=== PATIENT | female | born 1975 | race Caucasian/White ===

== ENCOUNTER 2016-12-24 15:11 | Emergency (ER) | payer OTHER ==
[~2016-12-24] VITALS: Ht 160 cm; Wt 54.0 kg
[~2016-12-24 15:11] MED LIST: AMOXICILLIN500 MG PO; ANAPROX DS550 MG PO; AUGMENTIN 875 M1 TAB PO; BACTRIM DS 8001 TA1 PO; CIPROFLOXACIN500 MG PO; CLARITIN10 MG PO; DAYPRO600 M1 PO; HYDROCODONE BIT1 T11 PO; MOTRIN800 MG PO; Motrin,Rufen800 MG PO; PROZAC10 MG PO; TRAMADOL HCL50 MG PO; ULTRAM50 MG PO; XANAX0.25 MG PO; ZITHROMAX Z PA250 MG PO; ZOFRAN ODT4 MG SL; ZOFRAN4 MG PO
[2016-12-24 15:20] VITALS: BP 119/74
[2016-12-24] MEDS ORDERED: CORTISPORIN SUS10 ML OT (15:31)
== END 2016-12-24 15:35 | disposition home or self-care (01) ==
LOC: ED 15:11
DX: H60.502 Unspecified acute noninfective otitis externa, left ear (principal); F17.200 Nicotine dependence, unspecified, uncomplicated; G47.00 Insomnia, unspecified; G43.909 Migraine, unspecified, not intractable, without status migrainosus; Z98.890 Other specified postprocedural states

== ENCOUNTER 2017-04-13 18:27 | Emergency (ER) | payer OTHER ==
[~2017-04-13] VITALS: Wt 52.2 kg
[~2017-04-13 18:27] MED LIST changes: +CORTISPORIN SUS10 ML OT
[2017-04-13 18:37] VITALS: BP 127/75
[2017-04-13] MEDS ORDERED: AMOXICILLIN500 M2 PO (18:49)
[2017-04-13] MEDS ORDERED: NAPROSYN500 MG PO (18:49)
== END 2017-04-13 18:58 | disposition home or self-care (01) ==
LOC: ED 18:27
DX: K08.89 Other specified disorders of teeth and supporting structures (principal); F17.200 Nicotine dependence, unspecified, uncomplicated; Z88.6 Allergy status to analgesic agent

== ENCOUNTER 2017-08-01 15:27 | Emergency (ER) | payer OTHER ==
[~2017-08-01] VITALS: Ht 162.5 cm; Wt 54.4 kg
[~2017-08-01 15:27] MED LIST changes: +AMOXICILLIN500 M2 PO; +NAPROSYN500 MG PO
[2017-08-01 15:34] VITALS: BP 139/76
[2017-08-01] MEDS ORDERED: FLONASE ALLERG9.9 ML NAS (16:21)
[2017-08-01] MEDS ORDERED: AMOXICILLIN500 M2 PO (16:21)
== END 2017-08-01 16:29 | disposition home or self-care (01) ==
LOC: ED 15:27
DX: J01.90 Acute sinusitis, unspecified (principal); R05 Cough; J02.9 Acute pharyngitis, unspecified; F17.200 Nicotine dependence, unspecified, uncomplicated; Z88.6 Allergy status to analgesic agent

== ENCOUNTER 2017-08-10 12:18 | Emergency (ER) | payer OTHER ==
[~2017-08-10] VITALS: Ht 162.5 cm; Wt 56.7 kg
[~2017-08-10 12:18] MED LIST changes: +FLONASE ALLERG9.9 ML NAS
[2017-08-10 12:37] VITALS: BP 105/52
== END 2017-08-10 14:00 | disposition home or self-care (01) ==
LOC: ED 12:18
DX: G43.909 Migraine, unspecified, not intractable, without status migrainosus (principal); G47.00 Insomnia, unspecified; F17.200 Nicotine dependence, unspecified, uncomplicated; Z88.5 Allergy status to narcotic agent; Z79.899 Other long term (current) drug therapy

== ENCOUNTER 2017-10-24 15:56 | Emergency (ER) | payer SELFPAY ==
[~2017-10-24] VITALS: Ht 162.5 cm; Wt 54.4 kg
[2017-10-24 16:03] VITALS: BP 116/64
== END 2017-10-24 17:07 | disposition home or self-care (01) ==
LOC: ED 15:56
DX: H61.23 Impacted cerumen, bilateral (principal); Z98.890 Other specified postprocedural states; Z79.899 Other long term (current) drug therapy; Z88.6 Allergy status to analgesic agent

== ENCOUNTER 2018-02-27 10:05 | Emergency (ER) | payer OTHER ==
[~2018-02-27] VITALS: Ht 162.5 cm; Wt 54.4 kg
[2018-02-27 10:09] VITALS: BP 110/66
[2018-02-27] MEDS ORDERED: IMITREX100 MG PO (10:27)
== END 2018-02-27 10:39 | disposition home or self-care (01) ==
LOC: ED 10:05
DX: G43.909 Migraine, unspecified, not intractable, without status migrainosus (principal); F17.200 Nicotine dependence, unspecified, uncomplicated; Z98.890 Other specified postprocedural states; Z88.6 Allergy status to analgesic agent

== ENCOUNTER → 2018-06-19 | Outpatient (CLI) | payer OTHER ==
[~2018-06-19] MED LIST changes: +IMITREX100 MG PO
== END | disposition home or self-care (01) ==
LOC: MAMMO 09:30
DX: Z12.31 Encounter for screening mammogram for malignant neoplasm of breast (principal)

== ENCOUNTER → 2018-07-09 | Outpatient (CLI) | payer OTHER | END | disposition home or self-care (01) | LOC: MAMMO 07-04 09:30 → US 07-04 10:00 → MAMMO 04:50 | DX: N64.89 Other specified disorders of breast (principal); N63.0 Unspecified lump in unspecified breast ==

== ENCOUNTER 2019-05-02 17:06 | Emergency (ER) | payer OTHER ==
[~2019-05-02] VITALS: Ht 162.5 cm; Wt 51.7 kg
[2019-05-02 17:08] VITALS: BP 138/71
== END 2019-05-02 18:54 | disposition home or self-care (01) ==
LOC: ED 17:06
DX: G43.909 Migraine, unspecified, not intractable, without status migrainosus (principal); F17.200 Nicotine dependence, unspecified, uncomplicated; Z88.8 Allergy status to other drugs, medicaments and biological substances

== ENCOUNTER 2019-08-16 16:30 | Emergency (ER) | payer OTHER ==
[~2019-08-16] VITALS: Ht 162.5 cm; Wt 53.1 kg
[2019-08-16 16:31] VITALS: BP 120/88
[2019-08-16] MEDS ORDERED: SEPTDS PO (19:49)
== END 2019-08-16 20:22 | disposition home or self-care (01) ==
LOC: ED 16:30
DX: J32.0 Chronic maxillary sinusitis (principal); G43.909 Migraine, unspecified, not intractable, without status migrainosus; F17.200 Nicotine dependence, unspecified, uncomplicated; Z88.6 Allergy status to analgesic agent

== ENCOUNTER 2019-10-18 16:14 | Emergency (ER) | payer OTHER ==
[~2019-10-18] VITALS: Ht 162.5 cm; Wt 49.9 kg
[~2019-10-18 16:14] MED LIST changes: +SEPTDS PO
[2019-10-18 16:17] VITALS: BP 135/78
== END 2019-10-18 17:20 | disposition left against medical advice (07) ==
LOC: ED 16:14
DX: N93.9 Abnormal uterine and vaginal bleeding, unspecified (principal); G43.909 Migraine, unspecified, not intractable, without status migrainosus; F41.9 Anxiety disorder, unspecified; R56.9 Unspecified convulsions; Z53.21 Procedure and treatment not carried out due to patient leaving prior to being seen by health care provider

== ENCOUNTER → 2019-10-29 | Outpatient (CLI) | payer OTHER | END | disposition home or self-care (01) | LOC: RAD 14:05 | DX: Z01.818 Encounter for other preprocedural examination (principal); N70.11 Chronic salpingitis; N92.1 Excessive and frequent menstruation with irregular cycle; Z77.22 Contact with and (suspected) exposure to environmental tobacco smoke (acute) (chronic) ==

== ENCOUNTER 2020-01-22 12:40 | Emergency (ER) | payer OTHER ==
[~2020-01-22] VITALS: Ht 162.5 cm; Wt 47.2 kg
[~2020-01-22 12:40] MED LIST changes: +CEFUROXIME AXE500 MG PO
[2020-01-22 12:47] VITALS: BP 141/67
[2020-01-22 13:31] LABS: HEMATOCRIT 36.5 % (37.0-47.0); MEAN CELL VOLUME 96.6 fl (81.0-99.0); MEAN CORPUSCULAR HGB 32.3 pg (27.0-31.0); MEAN CORPUSCULAR HGB CONC 33.4 g/dl (33.0-37.0); MEAN PLATELET VOLUME 11.5 fl (9.6-12.3); PLATELET COUNT AUTOMATED 332 10*3/uL (130-400); RED BLOOD COUNT 3.78 10*6/uL (4.10-5.10); WHITE BLOOD COUNT 6.6 10*3/uL (4.8-10.8)
[2020-01-22 13:43] LABS: ATYPICAL LYMPHS 1 % (0-0); PLATELET SUFFICIENCY NORMAL (NORMAL); TOTAL CELLS COUNTED 100 #CELLS
[2020-01-22 14:25] LABS: ACT PARTIAL THROMBO TIME 29.6 SECONDS (20.0-32.1)
[2020-01-22 14:37] LABS: ALBUMIN 3.6 gm/dl (3.1-4.5); ALKALINE PHOSPHATASE 49 U/L (45-117); BUN 8 mg/dl (7-24); CHLORIDE 107 mmol/L (98-107); CREATININE 0.71 mg/dL (0.55-1.02); LIPASE 122 U/L (73-393); POTASSIUM 3.9 mmol/L (3.5-5.1); SGOT/AST 23 IU/L (3-35); SGPT/ALT 23 U/L (12-78); SODIUM 136 mmol/L (136-145); TOTAL PROTEIN 6.6 gm/dL (6.4-8.2)
[2020-01-22 15:17] LABS: BILIRUBIN NEGATIVE (NEGATIVE); BLOOD TRACE-INTACT (NEGATIVE); CLARITY CLEAR (CLEAR); COLOR YELLOW (YELLOW); GLUCOSE NEGATIVE (NEGATIVE); KETONE NEGATIVE (NEGATIVE); LEUKO ESTERASE NEGATIVE (NEGATIVE); NITRITE POSITIVE (NEGATIVE); SPECIFIC GRAVITY 1.005 (1.005-1.030); UROBILINOGEN 0.2 E.U./dl (0.2-1.0)
[2020-01-22 15:18] LABS: BACTERIA 3+; EPITHELIAL CELLS 16-20; WBC 0-2 wbc/hpf (0-5)
[2020-01-22] MEDS ORDERED: ALBENDAZOLE200 MG PO (17:00)
[2020-01-22] MEDS ORDERED: CEPHALEXIN500 M1 PO (17:00)
== END 2020-01-22 17:10 | disposition home or self-care (01) ==
LOC: ED 12:40
PROVIDERS: Nurse Practitioner Family
DX: N39.0 Urinary tract infection, site not specified (principal); N93.9 Abnormal uterine and vaginal bleeding, unspecified; B80 Enterobiasis; G43.909 Migraine, unspecified, not intractable, without status migrainosus; Z88.6 Allergy status to analgesic agent

== ENCOUNTER 2020-03-12 20:06 | Emergency (ER) | payer OTHER ==
[~2020-03-12] VITALS: Ht 162.5 cm; Wt 45.4 kg
[~2020-03-12 20:06] MED LIST changes: +ALBENDAZOLE200 MG PO; +CEPHALEXIN500 M1 PO
[2020-03-12 20:11] VITALS: BP 137/83
[2020-03-12] MEDS ORDERED: VISTARIL50 MG PO (20:46)
== END 2020-03-12 20:54 | disposition home or self-care (01) ==
LOC: ED 20:06
DX: L25.9 Unspecified contact dermatitis, unspecified cause (principal); Z88.8 Allergy status to other drugs, medicaments and biological substances; Z79.899 Other long term (current) drug therapy

== ENCOUNTER 2020-09-07 11:02 | Emergency (ER) | payer OTHER ==
[~2020-09-07] VITALS: Wt 47.6 kg
[~2020-09-07 11:02] MED LIST changes: +VISTARIL50 MG PO
[2020-09-07 11:15] VITALS: BP 125/82
== END 2020-09-07 16:05 | disposition left against medical advice (07) ==
LOC: ED 11:02
DX: R51.9 Headache, unspecified (principal); Z53.21 Procedure and treatment not carried out due to patient leaving prior to being seen by health care provider

== ENCOUNTER 2022-02-17 19:10 | Emergency (ER) | payer BC ==
[~2022-02-17] VITALS: Ht 162.5 cm; Wt 49.9 kg
[2022-02-17 19:16] VITALS: BP 143/64
[2022-02-17] MEDS ORDERED: PENICILLIN VK500 MG PO (20:21)
== END 2022-02-17 20:42 | disposition home or self-care (01) ==
LOC: ED 19:10
DX: K02.9 Dental caries, unspecified (principal); H92.01 Otalgia, right ear; Z88.6 Allergy status to analgesic agent; Z98.890 Other specified postprocedural states

== ENCOUNTER 2022-05-01 08:43 | Emergency (ER) | payer BC ==
[~2022-05-01] VITALS: Ht 167.6 cm; Wt 54.4 kg
[~2022-05-01 08:43] MED LIST changes: +PENICILLIN VK500 MG PO
[2022-05-01 08:52] VITALS: BP 127/63
[2022-05-01] MEDS ORDERED: ONDANSETRON4 MG SL (09:15)
== END 2022-05-01 09:31 | disposition home or self-care (01) ==
LOC: ED 08:43
DX: U07.1 COVID-19 (principal); R11.0 Nausea; R51.9 Headache, unspecified; M79.10 Myalgia, unspecified site; Z88.8 Allergy status to other drugs, medicaments and biological substances; Z98.890 Other specified postprocedural states

== ENCOUNTER 2022-12-14 23:01 | Emergency (ER) | payer OTHER ==
[~2022-12-14] VITALS: Ht 162.5 cm; Wt 54.4 kg
[~2022-12-14 23:01] MED LIST changes: +ONDANSETRON4 MG SL
[2022-12-14 23:09] VITALS: BP 140/91
[2022-12-15 01:21] LABS: BASO # 0.1 10*3/uL (0.0-0.1); BASO % 0.6 % (0.0-1.0); EOS # 0.2 10*3/uL (0.0-0.4); HEMATOCRIT 32.7 % (37.0-47.0); LYMPH # 1.8 10*3/uL (1.3-4.4); LYMPH % 21.3 % (27.0-41.0); MEAN CELL VOLUME 94.8 fl (81.0-99.0); MEAN CORPUSCULAR HGB 31.6 pg (27.0-31.0); MEAN CORPUSCULAR HGB CONC 33.3 g/dl (33.0-37.0); MEAN PLATELET VOLUME 9.5 fl (9.6-12.3); MONO # 0.4 10*3/uL (0.1-1.0); MONO % 5.1 % (3.0-9.0); NEUT # 6.1 10*3/uL (2.3-7.9); NEUT % 70.8 % (47.0-73.0); PLATELET COUNT AUTOMATED 361 10*3/uL (130-400); RED BLOOD COUNT 3.45 10*6/uL (4.10-5.10); RED CELL DISTRI WIDTH 13.8 % (0-14.5); WHITE BLOOD COUNT 8.6 10*3/uL (4.8-10.8)
[2022-12-15 01:37] LABS: ALKALINE PHOSPHATASE 63 U/L (46-116); BUN 9 mg/dl (9-23); CHLORIDE 109 mmol/L (98-107); POTASSIUM 3.8 mmol/L (3.4-5.1); SGPT/ALT 8 U/L (10-49); TOTAL PROTEIN 6.5 gm/dL (6.0-8.0)
[2022-12-15] MEDS ORDERED: AMOX-CLAV 875-1 EACH PO (04:17)
[2022-12-15] MEDS ORDERED: FLONASE ALLERG9.9 ML NAS (04:17)
== END 2022-12-15 04:18 | disposition home or self-care (01) ==
LOC: ED 23:01
PROVIDERS: Emergency Medicine
DX: J32.9 Chronic sinusitis, unspecified (principal); G43.909 Migraine, unspecified, not intractable, without status migrainosus; Z88.8 Allergy status to other drugs, medicaments and biological substances; Z98.890 Other specified postprocedural states; F17.200 Nicotine dependence, unspecified, uncomplicated

== ENCOUNTER → 2024-10-20 | Day surgery (SDC) | payer BC ==
[~2024-10-20] VITALS: Ht 162.5 cm; Wt 58.1 kg
[~2024-10-20] MED LIST changes: +AMOX-CLAV 875-1 EACH PO; +IMITREX25 M1 PO; +Lactated Ringer's Solution 500 ML IV ONE; +Lidocaine Hydrochloride 2% 5 ML SDV IM ONE; +PROPOFOL 200 MG/20 ML VIAL IV ONE
[2024-10-20 07:45] VITALS: BP 113/45
[2024-10-20 08:25] VITALS: BP 129/78
[2024-10-20 08:40] VITALS: BP 116/75
[2024-10-20 08:55] VITALS: BP 126/73
== END | disposition home or self-care (01) ==
LOC: SDC 10-16 10:15
PROVIDERS: ATTEND Surgery
DX: Z12.11 Encounter for screening for malignant neoplasm of colon (principal); K57.30 Diverticulosis of large intestine without perforation or abscess without bleeding; G43.101 Migraine with aura, not intractable, with status migrainosus; F41.9 Anxiety disorder, unspecified; F32.A Depression, unspecified; F17.210 Nicotine dependence, cigarettes, uncomplicated; Z98.891 History of uterine scar from previous surgery; Z87.440 Personal history of urinary (tract) infections; Z98.890 Other specified postprocedural states; Z79.899 Other long term (current) drug therapy; Z88.8 Allergy status to other drugs, medicaments and biological substances; Z83.3 Family history of diabetes mellitus; Z80.1 Family history of malignant neoplasm of trachea, bronchus and lung

== ENCOUNTER 2025-02-19 13:24 | Emergency (ER) | payer BC ==
[~2025-02-19] VITALS: Ht 162.5 cm; Wt 59.0 kg
[~2025-02-19 13:24] MED LIST changes: -Lactated Ringer's Solution 500 ML IV ONE; -Lidocaine Hydrochloride 2% 5 ML SDV IM ONE; -PROPOFOL 200 MG/20 ML VIAL IV ONE
[2025-02-19 13:35] VITALS: BP 117/79
[2025-02-19] MEDS ORDERED: Ketorolac Tromethamine 30 MG/ML VIAL IV ONE (13:50)
[2025-02-19] MEDS ORDERED: SODIUM CHLORIDE 0.9% 1,000 ML IV ONE (13:50)
[2025-02-19] MEDS ORDERED: diphenhydrAMINE hydrochloride 50 MG/ML VIAL IV ONE (13:50)
[2025-02-19] MEDS ORDERED: Metoclopramide Hydrochloride 10 MG/2 ML VIAL IV ONE (13:50)
[2025-02-19] MEDS ORDERED: Dexamethasone Sodium Phospha 10 MG/1 ML VIAL IV ONE (15:15)
== END 2025-02-19 15:37 | disposition home or self-care (01) ==
LOC: ED 13:24
DX: G43.909 Migraine, unspecified, not intractable, without status migrainosus (principal); F41.9 Anxiety disorder, unspecified; Z79.899 Other long term (current) drug therapy; Z88.6 Allergy status to analgesic agent; Z98.890 Other specified postprocedural states